=== PATIENT | female | born 1940 | race Hispanic/Latino ===

== ENCOUNTER 2020-10-18 12:24 | Emergency (ER) | payer MEDICARE ==
[~2020-10-18] VITALS: Ht 157.5 cm; Wt 63.5 kg
[~2020-10-18 12:24] MED LIST: AMOXICILLIN875 MG PO; ASPIRIN81 MG PO; FELODIPINE ER10 MG PO; HYDROCHLOROTHIA25 MG; MELOXICAM7.5 MG PO; METOPROLOL SUCC25 MG PO; NASONEX17 GM INH; NEXIUM40 MG PO; OMEPRAZOLE40 MG PO; SIMVASTATIN40 MG PO; XARELTO20 MG PO
[2020-10-18] MEDS ORDERED: XARELTO15 MG PO (12:40)
[2020-10-18] MEDS ORDERED: prevagen PO (12:40)
[2020-10-18] MEDS ORDERED: AMLODIPINE BESY10 MG PO (12:40)
== END 2020-10-18 14:30 | disposition home or self-care (01) ==
LOC: ER 14:06
DX: R42 Dizziness and giddiness (principal); R51.9 Headache, unspecified; I10 Essential (primary) hypertension; F41.9 Anxiety disorder, unspecified; R94.31 Abnormal electrocardiogram [ECG] [EKG]
CPT/HCPCS: 93005; 99283

== ENCOUNTER → 2021-09-03 | Outpatient (CLI) | payer MEDICARE ==
[~2021-09-03] MED LIST changes: +AMLODIPINE BESY10 MG PO; +XARELTO15 MG PO; +prevagen PO
== END ==
LOC: US 11:28
PROVIDERS: ATTEND Internal Medicine Nephrology
DX: N18.31 Chronic kidney disease, stage 3a (principal)
CPT/HCPCS: 76770; 76857